=== PATIENT | female | born 1995 | race Caucasian/White ===

== ENCOUNTER 2016-08-22 06:59 | Emergency (ER) | payer OTHER ==
[2016-08-22] MEDS ORDERED: LIDOCAINE VIS-MYLANTA 30 ML UD PO ONE (07:28)
[2016-08-22] MEDS ORDERED: SODIUM CHLORIDE 0.9% 1000ML 1,000 ML IVS ONE (07:28)
[2016-08-22] MEDS ORDERED: ONDANSETRON ODT 8 MG TAB SL SCH (07:30)
--- NOTE | 2016-08-22 07:32 | ED.PDOC ---
History of Present Illness - General Chief Complaint: Abdominal Pain Stated Complaint: abdominal pain Time Seen by Provider: 08/22/16 07:00 Source: patient Exam Limitations: no limitations - History of Present Illness Initial Comments: The patient is a 21-year-old female presenting to the emergency room secondary to nausea and vomiting intermittently for the last 2-3 days along with 4 days of intermittent diarrhea some with a small amount of blood mixed in. She has had abdominal cramping primarily in the left upper abdomen. No definite fevers. No abdominal surgeries in the recent past. No recent antibiotics. No history of any stomach ulcers. No frequent NSAID use. No syncope or near syncope. No blood in the vomitus. No bowel movement vomitus. No right upper quadrant pain. No right lower abdominal pain. No family history of Crohn's or ulcerative colitis. No recent stomach trauma. no recent exotic travel. The patient did travel here for vacation from [place]. She is in the . Severity: moderate Improving Factors: nothing Worsening Factors: nothing Associated Symptoms: malaise, nausea/vomiting Allergies/Adverse Reactions: Allergies Amoxicillin [From Augmentin] Allergy (Verified 08/22/16 07:15) Clavulanic Acid [From Augmentin] Allergy (Verified 08/22/16 07:15) Home Medications: Ambulatory Orders Azithromycin 500 mg PO DAILY #3 tab 08/22/16 Famotidine 20 mg PO BID #60 tab 08/22/16 Ondansetron [Zofran Odt] 4 mg PO Q4H PRN #10 tab 08/22/16 Sucralfate Tab [Carafate Tab] 1 gm PO QID #60 tab 08/22/16 Review of Systems - Review of Systems Constitutional: States: malaise EENTM: States: no symptoms reported Respiratory: States: no symptoms reported Cardiology: States: no symptoms reported Gastrointestinal/Abdominal: States: abdominal pain, diarrhea, nausea, vomiting Genitourinary: States: no symptoms reported Musculoskeletal: States: no symptoms reported Skin: States: no symptoms reported Neurological: States: no symptoms reported Endocrine: States: no symptoms reported All other Systems: No Change from Baseline Past Medical History (General) - Patient Medical History Hx Thyroid Disease: Yes Surgical History: no surgical history - Vaccination History Hx Tetanus, Diphtheria Vaccination: Yes Hx Influenza Vaccination: Yes Hx Pneumococcal Vaccination: No - Social History Hx Tobacco Use: No Hx Alcohol Use: No Hx Substance Use: No Hx Substance Use Treatment: No Hx Depression: No - Activities of Daily Living Hospice Agency (if applicable):: None - Female History Patient is a Female of Child Bearing Age (10 -59 yrs old): Yes Patient : No Family Medical History - Family History Mother Family History: Unknown Physical Exam - Physical Exam General Appearance: Alert, Comfortable, No apparent distress Eye Exam: bilateral normal Ears, Nose, Throat: hearing grossly normal, normal ENT inspection, normal pharynx Neck: non-tender, full range of motion, supple, normal inspection Respiratory: chest non-tender, lungs clear, normal breath sounds, no respiratory distress, no accessory muscle use Cardiovascular/Chest: normal peripheral pulses, regular rate, rhythm, no edema Peripheral Pulses: radial,right: 2+, radial,left: 2+, dorsalis pedis,right: 2+, dorsalis pedis,left: 2+ Gastrointestinal/Abdominal: normal bowel sounds, soft, other - eft upper quadrant discomfort palpation. No definite rebound or peritoneal signs. 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 The patient has responded well to the antiemetic Zofran. she will be written for a short prescription for this. She needs to keep herself hydrated. She additionally needs to mushroom picker some Maalox for as needed use for any discomfort. She will also be written for famotidine twice daily for the next month and Carafate for 2 weeks. She'll be written for azithromycin 500 mg daily for 3 days for the gastroenteritis. She needs to return to emergency room for any acute worsening. If she does worsen and she may need additional workup including stool studies and additional imaging. I do not suspect that this will be required. mild dehydration was corrected with a liter of IV fluids. ER warnings were given. - Results/Orders Results/Orders: Laboratory Tests 08/22/16 08/22/16 08/22/16 07:40 07:40 07:40 WBC 4.3 L RBC 4.75 Hgb 14.1 Hct 41.4 MCV 87.1 MCH 29.7 MCHC 34.0 RDW 12.6 Plt Count 150 MPV 7.6 Absolute Neuts (auto) 3.40 Absolute Lymphs (auto) 0.70 L Absolute Monos (auto) 0.20 Absolute Eos (auto) 0.00 Absolute Basos (auto) 0.00 Neutrophils % 78.3 H Lymphocytes % 15.4 L Monocytes % 5.0 Eosinophils % 1.1 Basophils % 0.2 PT 11.0 INR 0.970 PTT (SP) 27.5 D-Dimer, Quantitative < 230 Sodium 134 L Potassium 3.7 Chloride 102 Carbon Dioxide 24 Anion Gap 11.7 L BUN 12 Creatinine 0.79 BUN/Creatinine Ratio 15.2 Random Glucose 85 Serum Osmolality 267.2 L Lactic Acid Calcium 8.3 L Total Bilirubin 0.7 AST 20 ALT 14 Alkaline Phosphatase 47 Serum Total Protein 6.7 Albumin 3.5 Globulin 3.2 Albumin/Globulin Ratio 1.1 Amylase 30 Lipase 26 Serum HCG, Qual Urine Color Urine Appearance Urine pH Ur Specific [place] Urine Protein Urine Glucose (UA) Urine Ketones Urine Blood Urine Nitrite Urine Bilirubin Urine Urobilinogen Ur Leukocyte Esterase Urine RBC Urine WBC Ur Epithelial Cells Urine Bacteria 08/22/16 08/22/16 08/22/16 07:40 07:40 08:25 WBC RBC Hgb Hct MCV MCH MCHC RDW Plt Count MPV Absolute Neuts (auto) Absolute Lymphs (auto) Absolute Monos (auto) Absolute Eos (auto) Absolute Basos (auto) Neutrophils % Lymphocytes % Monocytes % Eosinophils % Basophils % PT INR PTT (SP) D-Dimer, Quantitative Sodium Potassium Chloride Carbon Dioxide Anion Gap BUN Creatinine BUN/Creatinine Ratio Random Glucose Serum Osmolality Lactic Acid 0.6 Calcium Total Bilirubin AST ALT Alkaline Phosphatase Serum Total Protein Albumin Globulin Albumin/Globulin Ratio Amylase Lipase Serum HCG, Qual Negative Urine Color Yellow Urine Appearance Clear Urine pH 6.0 Ur Specific [place] 1.015 Urine Protein Negative Urine Glucose (UA) Negative Urine Ketones 80 H Urine Blood Small H Urine Nitrite Negative Urine Bilirubin Small H Urine Urobilinogen 0.2 Ur Leukocyte Esterase Negative Urine RBC 0-1 Urine WBC 0-1 Ur Epithelial Cells 1-3 Urine Bacteria Rare acute abdominal series is benign. No evidence of free air. No evidence of obstruction. No evidence of significant constipation. Departure - Departure Clinical Impression: Diarrhea, Gastritis Disposition: Discharge to Home or Self Care Condition: Fair Departure Forms: ED Discharge - Pt. Copy, Patient Portal Self Enrollment Instructions: DI for Bacterial Gastroenteritis -- Adult Diet: bland diet Activity: increase activity as tolerated Prescriptions: Azithromycin 500 mg PO DAILY #3 tab Famotidine 20 mg PO BID #60 tab Ondansetron [Zofran Odt] 4 mg PO Q4H PRN #10 tab PRN Reason: Vomiting Sucralfate Tab [Carafate Tab] 1 gm PO QID #60 tab Home Medications: Ambulatory Orders Azithromycin 500 mg PO DAILY #3 tab 08/22/16 Famotidine 20 mg PO BID #60 tab 08/22/16 Ondansetron [Zofran Odt] 4 mg PO Q4H PRN #10 tab 08/22/16 Sucralfate Tab [Carafate Tab] 1 gm PO QID #60 tab 08/22/16 Additional Instructions: the patient is a 21-year-old female presenting with gastroenteritis with stomach pain that does appear to be responsive to a GI cocktail and some bloody diarrhea. The patient has responded well to the antiemetic Zofran. she will be written for a short prescription for this. She needs to keep herself hydrated. She additionally needs to mushroom picker some Maalox for as needed use for any discomfort. She will also be written for famotidine twice daily for the next month and Carafate for 2 weeks. She'll be written for azithromycin 500 mg daily for 3 days for the gastroenteritis. She needs to return to emergency room for any acute worsening. If she does worsen and she may need additional workup including stool studies and additional imaging. I do not suspect that this will be required. mild dehydration was corrected with a liter of IV fluids. ER warnings were given.
[2016-08-22 07:39] VITALS: TEMP 98.7
--- NOTE | 2016-08-22 08:47 | RAD ---
EXAM DESCRIPTION: Abdomen Series CLINICAL HISTORY: 21 years, Female, bloody diarrhea, vomiting 4 days COMPARISON: None. FINDINGS: Frontal view the chest shows adequate inspiration without consolidation. Probable small granuloma about 2 mm right midlung zone laterally. No free air under right hemidiaphragm. Supine and erect films show nonspecific bowel gas. No distention. No pathologic calcifications. IMPRESSION: Nonspecific bowel gas pattern without findings of obstruction or free air Electronically signed by: Chris Saucedo MD 08/22/2016 8:47 AM CDT
[2016-08-22 10:08] VITALS: BP 113/74; O2SAT 100
== END 2016-08-22 10:08 | disposition home or self-care (01) ==
LOC: ER 06:59
DX: K29.70 Gastritis, unspecified, without bleeding (principal); R19.7 Diarrhea, unspecified; E07.9 Disorder of thyroid, unspecified; Z88.8 Allergy status to other drugs, medicaments and biological substances; Z88.3 Allergy status to other anti-infective agents; Z79.899 Other long term (current) drug therapy
CPT/HCPCS: 36415; 74020; 80053; 81001; 82150; 83605; 83690; 84703; 85025; 85379; 85610; 85730; J7030